=== PATIENT | female | born 1960 | race American Indian/Alaskan Native ===

== ENCOUNTER 2017-11-19 13:23 | Observation (INO) | payer OTHER ==
--- NOTE | 2017-11-19 14:04 | Cat Scan Report ---
FINAL REPORT EXAM: CT CERVICAL SPINE WO CON HISTORY: fall, +LOC TECHNIQUE: Spiral CT scanning of the cervical spine, with axial images and multiplanar reformations. PRIORS: None. FINDINGS: Mild reversal of normal cervical lordosis may be positional versus soft tissue spasm. Mild, multilevel degenerative disc disease and spondylosis. No acute compression deformity or gross malalignment of cervical vertebral bodies. No acute fracture identified. No acute, osseous central spinal canal encroachment. Paraspinal soft tissues grossly unremarkable. IMPRESSION: 1. No acute compression deformity or apparent fracture in the cervical spine. 2. Mild degenerative spondylosis.
--- NOTE | 2017-11-19 14:04 | Cat Scan Report ---
FINAL REPORT EXAM: CT HEAD/BRAIN WO CON HISTORY: fall, +LOC TECHNIQUE: Noncontrast CT axial images of the brain. PRIORS: 02 December 2014. FINDINGS: No parenchymal mass, mass effect, hemorrhage, midline shift or hydrocephalus. No evidence of acute cortical infarct. No abnormal, extra-axial fluid or air collection. Osseous calvarium grossly intact. Marginal mucosal thickening in the ethmoid and left maxillary sinuses. IMPRESSION: 1. No acute intracranial findings.
[2017-11-19 14:39] LABS: Basophils % (Auto) 0.5 % (0.0-1.8); Eosinophils # (Auto) 0.2 K/mm3 (0.0-0.4); Eosinophils % (Auto) 2.5 % (0.0-4.3); Hematocrit 38.5 % (30.3-42.9); Hemoglobin 12.5 gm/dl (10.1-14.3); Lymphocytes # (Auto) 2.1 K/mm3 (1.2-5.4); Lymphocytes % (Auto) 28.3 % (13.4-35.0); Mean Corpuscular HGB Conc 33 % (30-34); Mean Corpuscular Hemoglobin 28 pg (28-32); Mean Corpuscular Volume 86 fl (79-97); Monocytes # (Auto) 0.6 K/mm3 (0.0-0.8); Monocytes % (Auto) 7.6 % (0.0-7.3); Platelet Count 183 K/mm3 (140-440)
[2017-11-19 14:42] LABS: BUN/Creatinine Ratio 15; Blood Urea Nitrogen 16 mg/dL (7-17); Calcium 10.4 mg/dL (8.4-10.2); Hemolysis Index 0; INR 0.9 (0.87-1.13); Partial Thromboplastin Time 24.1 Sec. (24.2-36.6)
[2017-11-19 14:43] LABS: Thrombin Time 17.2 Sec. (15.1-19.6)
[2017-11-19] MEDS ORDERED: NACL 0.9% 1000 ML 1,000 ML IV ONE (14:58)
[2017-11-19] MEDS ORDERED: KCL 10MEQ/100ML 10 MEQ/100 ML BAG IV ONE (15:01)
--- NOTE | 2017-11-19 15:35 | Cat Scan Report ---
FINAL REPORT EXAM: CT LUMBAR SPINE WO CON HISTORY: fall, struck back and chest, low back pain TECHNIQUE: Spiral CT scanning of the lumbar spine with multiplanar reformations. PRIORS: None. FINDINGS: No acute compression deformity or gross malalignment of lumbar vertebral bodies. No acute fracture identified. No acute, osseous central spinal canal encroachment. Paraspinal soft tissues grossly unremarkable. Punctate calcification noted in the right kidney measuring 1-2 mm, without significant hydronephrosis. IMPRESSION: 1. No acute compression deformity or apparent fracture in the lumbar spine. 2. Punctate, nonobstructing right renal calcification. No significant right hydronephrosis.
[2017-11-19] MEDS ORDERED: NORCO 10/325 PO ONE (15:43)
--- NOTE | 2017-11-19 15:45 | Cat Scan Report ---
FINAL REPORT EXAM: CT CHEST WO CON HISTORY: fall, struck chest, chest pain TECHNIQUE: Spiral CT scanning of the chest. No IV contrast administered. Multiplanar reformations. PRIORS: None. FINDINGS: Chest: Examination limited due to lack of IV contrast administration. Lungs show no significant parenchymal contusions, lacerations or hemothorax. No apparent pneumothorax. Mild cardiomegaly. Ascending thoracic aorta mildly aneurysmal measuring 4.4 cm in maximal cross-sectional diameter. Remainder of thoracic aorta tortuous and ectatic, tapering to the hiatus. No apparent mediastinal hematoma or pneumomediastinum. Bony thorax grossly intact. Punctate calcification again noted in the right kidney. Rounded hypodensities noted in the bilateral kidneys, largest measuring approximately 1.4 cm in the left kidney. IMPRESSION: 1. No acute findings. 2. Mild cardiomegaly and aneurysmal ascending thoracic aorta as reported. 3. Punctate, nonobstructing right renal calcification. Bilateral renal hypodensities possibly representing cysts, but nonspecific. Correlation with renal ultrasound may be confirmatory, as clinically indicated.
[2017-11-19] MEDS ORDERED: APRESOLINE IV ONE (16:45)
[2017-11-19] MEDS ORDERED: MORPHINE IV ONE (16:47)
--- NOTE | 2017-11-19 16:55 | Emergency Department Report ---
ED General Adult HPI - General Chief complaint: Neuro Symptoms/Deficit Stated complaint: HEAD/NECK/BACK PAIN &HANS Time Seen by Provider: 11/19/17 14:43 Source: EMS Mode of arrival: Ambulatory Limitations: No Limitations - History of Present Illness Initial comments: 57-year-old woman fell while in a store, believing that she slipped on a wet surface, and took a hard fall, striking her head with loss of consciousness, as well as striking her chest and back. She has significant pain, which is more or less generalized along her entire back, significant neck pain, and pain at the back of her head. Duration of unconsciousness is unknown, patient was not accompanied at that time, but a family member did find her, on the floor, and was able to arouse her. However, she was unable to get up or walk because of pain, and was brought in by embolus for further evaluation, with concern about some weakness on her left side by nurses at intake, but patient reports no history of stroke and no distinct weakness, and has pain on moving any extremity. Which limits movement of all of the extremities.. Past medical history is significant predominantly for hypertension, for which she takes lisinopril, and apparently had another diuretic medication, but cannot recall. She denies any history of diabetes, no heart disease, no strokes. Onset/Timin -: Sudden, hour(s) Location: head, neck, chest, back Severity scale (0 -10): 9 Quality: stabbing, aching, sharp Consistency: constant Improves with: none Worsens with: movement Associated Symptoms: denies other symptoms - Related Data Previous Rx's Medication Instructions Recorded Last Taken Type Aspirin EC [Aspirin Enteric Coated 81 mg PO QDAY #30 tablet.dr 12/09/14 Unknown Rx TAB] Doxycycline [Vibramycin CAP] 100 mg PO BID #12 capsule 12/09/14 Unknown Rx Lactobacillus Acidophil [Lactinex] 1 each PO TID #30 tablet 12/09/14 Unknown Rx Lisinopril [Zestril TAB] 2.5 mg PO DAILY #30 tablet 12/09/14 Unknown Rx Metoprolol [Lopressor TAB] 50 mg PO TID #90 tablet 12/09/14 Unknown Rx Cyclobenzaprine [Flexeril] 10 mg PO TID PRN #14 tablet 06/25/15 Unknown Rx HYDROcodone/APAP 5-325 [[place] 1 - 2 each PO Q6HR PRN #14 tablet 06/25/15 Unknown Rx 5/325] Ibuprofen [Motrin 800 MG tab] 800 mg PO Q8HR PRN #20 tablet 06/25/15 Unknown Rx Allergies Allergy/AdvReac Type Severity Reaction Status Date / Time No Known Allergies Allergy Unverified 12/01/14 11:01 ED Review of Systems ROS: Stated complaint: HEAD/NECK/BACK PAIN &HANS Other details as noted in HPI ED Past Medical Hx - Past Medical History Previous Medical History?: Yes Hx Hypertension: Yes Hx Congestive Heart Failure: No Hx Diabetes: No Hx Deep Vein Thrombosis: Yes (Blood clot in abdomen 2008) Hx Arthritis: Yes Hx Asthma: Yes Hx COPD: No Hx HIV: No - Surgical History Past Surgical History?: No - Social History Smoking Status: Unknown if ever smoked Substance Use Type: Prescribed - Medications Home Medications: Home Medications Medication Instructions Recorded Confirmed Last Taken Type Aspirin EC [Aspirin Enteric Coated 81 mg PO QDAY #30 tablet.dr 12/09/14 Unknown Rx TAB] Doxycycline [Vibramycin CAP] 100 mg PO BID #12 capsule 12/09/14 Unknown Rx Lactobacillus Acidophil [Lactinex] 1 each PO TID #30 tablet 12/09/14 Unknown Rx Lisinopril [Zestril TAB] 2.5 mg PO DAILY #30 tablet 12/09/14 Unknown Rx Metoprolol [Lopressor TAB] 50 mg PO TID #90 tablet 12/09/14 Unknown Rx Cyclobenzaprine [Flexeril] 10 mg PO TID PRN #14 tablet 06/25/15 Unknown Rx HYDROcodone/APAP 5-325 [[place] 1 - 2 each PO Q6HR PRN #14 tablet 06/25/15 Unknown Rx 5/325] Ibuprofen [Motrin 800 MG tab] 800 mg PO Q8HR PRN #20 tablet 06/25/15 Unknown Rx ED Physical Exam - General Limitations: No Limitations General appearance: alert, anxious, other (speaks primarily in a whisper, appears distracted secondary to her generalized pain) - Head Head exam: Present: normal inspection, other (tender palpation of occiput, no laceration, no bony defect) - Eye Eye exam: Present: PERRL, EOMI - ENT ENT exam: Present: normal exam - Neck Neck exam: Present: normal inspection, tenderness (marked tenderness bilaterally , paracervical musculature, as well as midline, no step-off). Absent: full ROM (limited by pain, in any direction) - Respiratory Respiratory exam: Present: normal lung sounds bilaterally, wheezes (faint, rare) , rales (few posterior crackles,), chest wall tenderness (significantly tender left lateral lower chest wall). Absent: rhonchi - Cardiovascular Cardiovascular Exam: Present: regular rate, normal heart sounds - GI/Abdominal GI/Abdominal exam: Present: soft, normal bowel sounds. Absent: tenderness - Rectal Rectal exam: Present: deferred - Extremities Exam Extremities exam: Present: normal inspection. Absent: tenderness - Back Exam Back exam: Present: normal inspection, tenderness (marked tenderness to palpation bilateral paralumbar musculature), muscle spasm, paraspinal tenderness , other (significant interval rhomboid tenderness, levator scapula and trapezius muscle, bilateral, with spasm). Absent: full ROM (limited by pain) - Neurological Exam Neurological exam: Present: alert, oriented X3. Absent: motor sensory deficit ( limited effort bilaterally, but good movement of all extremities, able to lift legs off stretcher) - Psychiatric Psychiatric exam: Present: normal affect, normal mood - Skin Skin exam: Present: warm, dry ED Course Vital Signs 11/19/17 11/19/17 11/19/17 14:02 14:19 14:30 Temperature 37.1 C Pulse Rate 67 76 Respiratory 14 16 14 Rate Blood Pressure 209/101 161/91 O2 Sat by Pulse 96 100 100 Oximetry 11/19/17 11/19/17 11/19/17 14:33 14:59 15:01 Temperature Pulse Rate 72 70 Respiratory 18 13 19 Rate Blood Pressure 161/91 161/91 O2 Sat by Pulse 98 Oximetry 11/19/17 11/19/17 11/19/17 15:15 15:31 15:45 Temperature Pulse Rate 72 71 88 Respiratory 25 H 21 18 Rate Blood Pressure 161/91 161/91 213/106 O2 Sat by Pulse 98 98 Oximetry 11/19/17 15:52 Temperature Pulse Rate Respiratory 20 Rate Blood Pressure O2 Sat by Pulse Oximetry - Reevaluation(s) Reevaluation #1: 11/19/17 16:59 Patient still with significant discomfort on recheck, has had minimal relief with hydrocodone orally, does have some better movement in all extremities, is able to be sat up, but this causes significant discomfort in the soft tissue along her spine, both in lumbar and thoracic area, but with good range of motion , no bony step-off. Patient remained significantly hypertensive, medicated with hydralazine intravenously. ED Medical Decision Making - Lab Data Result diagrams: 11/19/17 14:23 11/19/17 14:23 - Radiology Data Radiology results: report reviewed (CT scan of head, cervical spine, chest, and lumbar spine, shows no acute fractures) - Medical Decision Making Patient is significantly uncomfortable, but without evidence of acute fracture. She is also significantly hypokalemic, which may have contributed to her unsteadiness and weakness, and probably accentuate her discomfort. She is also significantly hypertensive, probably accentuated by pain, and she will likely need hospitalization for correction of hypokalemia, as well as pain control. - Differential Diagnosis skull fracture, intracranial injury, cervical fracture, rib fracture, pneum Critical Care Time: Yes Critical care attestation.: If time is entered above; I have spent that time in minutes in the direct care of this critically ill patient, excluding procedure time. 30 Critical Care Time: 30 minutes of critical care time was assessed in this patient with the acute injury as a result of weakness and fall, with findings of severe hypokalemia, which required stabilizing treatment with intravenous replenishment of potassium and hospitalization. No billable procedures were performed during this encounter. ED Disposition Clinical Impression: Hypokalemia Acute cervical myofascial strain Qualifiers: Encounter type: initial encounter Qualified Code(s): S16.1XXA - Strain of muscle, fascia and tendon at neck level, initial encounter Scalp contusion Qualifiers: Encounter type: initial encounter Qualified Code(s): S00.03XA - Contusion of scalp, initial encounter Contusion of left chest wall Qualifiers: Encounter type: initial encounter Qualified Code(s): S20.212A - Contusion of left front wall of thorax, initial encounter Acute lumbar myofascial strain Qualifiers: Encounter type: initial encounter Qualified Code(s): S39.012A - Strain of muscle, fascia and tendon of lower back, initial encounter Disposition: OP ADMIT IP TO THIS HOSP Is pt being admited?: Yes Does the pt Need Aspirin: No Condition: Stable Referrals: PRIMARY CARE, [Primary Care Provider] - 3-5 Days Time of Disposition: 18:10
[2017-11-19] MEDS ORDERED: DUONEB *Not for PRN Use IH ONE (18:11)
[2017-11-19] MEDS ORDERED: TYLENOL PO PRN ×2 (18:11→21:55)
[2017-11-19] MEDS ORDERED: SODIUM CHLORIDE FLUSH SYRINGE 10 ML IV PRN ×2 (18:11→21:55)
[2017-11-19] MEDS ORDERED: ZOFRAN IV PRN ×2 (18:11→21:55)
--- NOTE | 2017-11-19 21:54 | History and Physical Report ---
History of Present Illness Date of examination: 11/19/17 Date of admission: 11/19/17 18:11 Chief complaint: Chief complaint: Status post fall and loss of consciousness for a few seconds Pain all over History of present illness: History of Present Illness: 57-year-old woman fell while in a store, believing that she slipped on a wet surface, and took a hard fall, striking her head with loss of consciousness, as well as striking her chest and back. She has significant pain, which is more or less generalized along her entire back, significant neck pain, and pain at the back of her head. Duration of unconsciousness is unknown, patient was not accompanied at that time, but a family member did find her, on the floor, and was able to arouse her. However, she was unable to get up or walk because of pain, and was brought in by EMS for further evaluation, with concern about some weakness on her left side by nurses at intake, but patient reports no history of stroke and no distinct weakness, and has pain on moving any extremity. Which limits movement of all of the extremities.. Past medical history is significant predominantly for hypertension, for which she takes lisinopril, and apparently had another diuretic medication, but cannot recall. She denies any history of diabetes, no heart disease, no strokes. Past Medical History Previous Medical History?: Yes Hx Hypertension: Yes Hx Deep Vein Thrombosis: Yes (Blood clot in abdomen 2008) Hx Arthritis: Yes Hx Asthma: Yes Surgical History Past Surgical History?: No Social History Smoking Status: No smoking Substance Use Type: None Family history: Htn Medications Home Medications: None Review of Systems ROS: Stated complaint: HEAD/NECK/BACK PAIN &HANS Other details as noted in HPI 14 point review of systems done Medications and Allergies Allergies Allergy/AdvReac Type Severity Reaction Status Date / Time No Known Allergies Allergy Unverified 12/01/14 11:01 Home Medications Medication Instructions Recorded Confirmed Last Taken Type Aspirin EC [Aspirin Enteric Coated 81 mg PO QDAY #30 tablet. 12/09/14 Unknown Rx TAB] Doxycycline [Vibramycin CAP] 100 mg PO BID #12 capsule 12/09/14 Unknown Rx Lactobacillus Acidophil [Lactinex] 1 each PO TID #30 tablet 12/09/14 Unknown Rx Lisinopril [Zestril TAB] 2.5 mg PO DAILY #30 tablet 12/09/14 Unknown Rx Metoprolol [Lopressor TAB] 50 mg PO TID #90 tablet 12/09/14 Unknown Rx Cyclobenzaprine [Flexeril] 10 mg PO TID PRN #14 tablet 06/25/15 Unknown Rx HYDROcodone/APAP 5-325 [[place] 1 - 2 each PO Q6HR PRN #14 tablet 06/25/15 Unknown Rx 5/325] Ibuprofen [Motrin 800 MG tab] 800 mg PO Q8HR PRN #20 tablet 06/25/15 Unknown Rx Active Meds: Active Medications Acetaminophen (Tylenol) 650 mg PO Q4H PRN PRN Reason: Pain MILD(1-3)/Fever >100.5/MATUTE Sodium Chloride (Nacl 0.9% 1000 Ml) 1,000 mls @ 125 mls/hr IV ONCE ONE Stop: 11/19/17 22:57 Last Admin: 11/19/17 15:38 Dose: 125 mls/hr Ondansetron HCl (Zofran) 4 mg IV Q8H PRN PRN Reason: Nausea And Vomiting Sodium Chloride (Sodium Chloride Flush Syringe 10 Ml) 10 ml IV BID RACHEL Sodium Chloride (Sodium Chloride Flush Syringe 10 Ml) 10 ml IV PRN PRN PRN Reason: LINE FLUSH Exam - Physical Exam Narrative exam: Lying in bed comfortably - Constitutional Vitals: Temp Pulse Resp BP Pulse Ox 98.5 F 74 18 188/89 99 11/19/17 20:20 11/19/17 20:20 11/19/17 20:20 11/19/17 20:20 11/19/17 20:20 General appearance: Present: no acute distress, well-nourished - EENT Eyes: Present: PERRL ENT: hearing intact, clear oral mucosa - Neck Neck: Present: supple, normal ROM - Respiratory Respiratory effort: normal Respiratory: bilateral: CTA - Cardiovascular Heart rate: 80 Rhythm: regular Heart Sounds: Present: S1 & S2. Absent: rub, click - Extremities Extremities: no ischemia, pulses intact, pulses symmetrical, No edema Peripheral Pulses: within normal limits - Abdominal General gastrointestinal: Present: soft, non-tender, non-distended, normal bowel sounds Female genitourinary: Present: normal - Rectal Rectal Exam: deferred - Integumentary Integumentary: Present: clear, warm, dry - Musculoskeletal Musculoskeletal: gait normal, strength equal bilaterally - Psychiatric Psychiatric: appropriate mood/affect, intact judgment & insight - Neurologic Neurologic: CNII-XII intact, moves all extremities - Allied Health Allied health notes reviewed: nursing, case management Results - Labs CBC & Chem 7: 11/19/17 14:23 11/19/17 14:23 Labs: Laboratory Last Values WBC 7.4 K/mm3 (4.5-11.0) 11/19/17 14:23 RBC 4.50 M/mm3 (3.65-5.03) 11/19/17 14:23 Hgb 12.5 gm/dl (10.1-14.3) 11/19/17 14:23 Hct 38.5 % (30.3-42.9) 11/19/17 14:23 MCV 86 fl (79-97) 11/19/17 14:23 MCH 28 pg (28-32) 11/19/17 14:23 MCHC 33 % (30-34) 11/19/17 14:23 RDW 15.0 % (13.2-15.2) 11/19/17 14:23 Plt Count 183 K/mm3 (140-440) 11/19/17 14:23 Lymph % (Auto) 28.3 % (13.4-35.0) 11/19/17 14:23 [place] % (Auto) 7.6 % (0.0-7.3) H 11/19/17 14:23 Eos % (Auto) 2.5 % (0.0-4.3) 11/19/17 14:23 Baso % (Auto) 0.5 % (0.0-1.8) 11/19/17 14:23 Lymph # 2.1 K/mm3 (1.2-5.4) 11/19/17 14:23 [place] # 0.6 K/mm3 (0.0-0.8) 11/19/17 14:23 Eos # 0.2 K/mm3 (0.0-0.4) 11/19/17 14:23 Baso # 0.0 K/mm3 (0.0-0.1) 11/19/17 14:23 Seg Neutrophils % 61.1 % (40.0-70.0) 11/19/17 14:23 Seg Neutrophils # 4.5 K/mm3 (1.8-7.7) 11/19/17 14:23 PT 12.6 Sec. (12.2-14.9) 11/19/17 14:23 INR 0.90 (0.87-1.13) 11/19/17 14:23 APTT 24.1 Sec. (24.2-36.6) L 11/19/17 14:23 Thrombin Time 17.2 Sec. (15.1-19.6) 11/19/17 14:23 Sodium 143 mmol/L (137-145) 11/19/17 14:23 Potassium 2.7 mmol/L (3.6-5.0) L* 11/19/17 14:23 Chloride 94.1 mmol/L (98-107) L 11/19/17 14:23 Carbon Dioxide 37 mmol/L (22-30) H 11/19/17 14:23 Anion Gap 15 mmol/L 11/19/17 14:23 BUN 16 mg/dL (7-17) 11/19/17 14:23 Creatinine 1.1 mg/dL (0.7-1.2) 11/19/17 14:23 Estimated GFR > 60 ml/min 11/19/17 14:23 BUN/Creatinine Ratio 15 % 11/19/17 14:23 Glucose 119 mg/dL (65-100) H 11/19/17 14:23 Calcium 10.4 mg/dL (8.4-10.2) H 11/19/17 14:23 Troponin T < 0.010 ng/mL (0.00-0.029) 11/19/17 14:23 - Imaging and Cardiology EKG: report reviewed (sinus rhythm at a rate of 68 left anterior fascicular block left ventricular hypertrophy) Imaging and Cardiology: Imaging studies CT spine= C-spine Head CT Chest CT Lumbar spine CT- all negative for any acute injury Renal cyst present Assessment and Plan Advance Directives: Yes (full code) VTE prophylaxis?: Chemical Plan of care discussed with patient/family: Yes - Patient Problems (1) Intracranial injury with concussion Current Visit: Yes Status: Acute Qualifiers: Encounter type: initial encounter Loss of consciousness presence/duration: with LOC of 30 min or less Qualified Code(s): S06.0X1A - Concussion with loss of consciousness of 30 minutes or less, initial encounter Plan to address problem: Patient had loss of consciousness for couple of minutes and recovered completely. We will observe for 24 hours. Physical therapy initiated (2) Hypokalemia Current Visit: Yes Status: Acute Plan to address problem: Patient on diuretics at home with no potassium supplements Potassium supplemented (3) Hypertension Current Visit: Yes Status: Chronic Qualifiers: Hypertension type: essential hypertension Qualified Code(s): I10 - Essential (primary) hypertension Plan to address problem: Losartan 100 mg by mouth daily initiated (4) DVT prophylaxis Current Visit: Yes Status: Acute Plan to address problem: Heparin 5000 every 12 subcutaneously
[2017-11-19] MEDS ORDERED: MORPHINE IV PRN (21:55)
[2017-11-19] MEDS ORDERED: PERCOCET 5/325 PO PRN (21:55)
[2017-11-19] MEDS ORDERED: NACL 0.9% 1000 ML 1,000 ML IV SCH (22:00)
[2017-11-19] MEDS ORDERED: SODIUM CHLORIDE FLUSH SYRINGE 10 ML IV SCH (22:00)
[2017-11-19] MEDS ORDERED: K-DUR PO ONE (22:14)
[2017-11-19] MEDS: PEPCID PO SCH (23:51)
[2017-11-19] MEDS: SODIUM CHLORIDE FLUSH SYRINGE 10 ML IV SCH (23:52)
[2017-11-19] MEDS: HEPARIN SUB-Q SCH (23:53)
[2017-11-20] MEDS: KCL 10MEQ/100ML 10 MEQ/100 ML BAG IV SCH ×4 (00:17→04:04)
[2017-11-20 08:34] LABS: Basophils % (Auto) 0.7 % (0.0-1.8); Eosinophils # (Auto) 0.1 K/mm3 (0.0-0.4); Eosinophils % (Auto) 2.1 % (0.0-4.3); Hematocrit 36.8 % (30.3-42.9); Hemoglobin 12.4 gm/dl (10.1-14.3); Lymphocytes # (Auto) 1.7 K/mm3 (1.2-5.4); Lymphocytes % (Auto) 27.8 % (13.4-35.0); Mean Corpuscular HGB Conc 34 % (30-34); Mean Corpuscular Hemoglobin 29 pg (28-32); Mean Corpuscular Volume 85 fl (79-97); Monocytes # (Auto) 0.5 K/mm3 (0.0-0.8); Monocytes % (Auto) 8.8 % (0.0-7.3); Platelet Count 179 K/mm3 (140-440); Red Blood Count 4.34 M/mm3 (3.65-5.03)
--- NOTE | 2017-11-20 08:39 | Progress Note ---
Assessment and Plan Assessment and plan: Patient is 57 yo woman with a history of hypertension, dvt 2008, oa and asthma who pw mechanical fall with loc after. 2014, she had epistaxis, code blue during 2015 hospital stay with respiratory failure s/p intubation, extubation, arf and elevated troponin -Intracranial injury with concussion: consulted Neurology, Physical therapy initiated -Hypokalemia, severe, K 2.7, still low: replace and repeat in am -Hypernatremia: stop nss and repeat in am -Hypertension:Losartan 100 mg by mouth daily initiated - DVT prophylaxis: Heparin 5000 every 12 subcutaneously History Interval history: Patient was seen and examined. Follow-up on current diagnosis. Overnight uneventful. Patient denies any chest pain, shortness breath, nausea/vomiting or severe headaches. Imaging, nursing note, chart, labs and old chart reviewed. Discussed with patient. Hospitalist Physical - Physical exam Narrative exam: GEN: WDWN, NAD, Awake, Alert, Orientated HEENT: NCAT, EOMI, PERRL, OP Clear NECK: supple, no adenopathy, no thyromegaly, no JVD CVS/HEART: RRR, normal S1S2, pulses present bilaterally CHEST/LUNGS: CTA B, Symmetrical chest expansion, good air entry bilaterally GI/Abdomen: soft, NTND, good bowel sounds, no guarding or rebound /Bladder: no suprapubic tenderness, no CVA or paraspinal tenderness EXT/Skin: no c/c/e, no obvious rash MSK: FROM x 4 Neuro: CN 2-12 grossly intact, no new focal deficits Psych: calm - Constitutional Vitals: Temp Pulse Resp BP Pulse Ox 98.6 F 63 20 175/90 98 11/20/17 07:20 11/20/17 07:20 11/20/17 07:20 11/20/17 07:20 11/20/17 07:20 General appearance: Present: no acute distress, well-nourished Results - Labs CBC & Chem 7: 11/20/17 07:39 11/20/17 07:39 Labs: Laboratory Last Values WBC 6.1 K/mm3 (4.5-11.0) 11/20/17 07:39 RBC 4.34 M/mm3 (3.65-5.03) 11/20/17 07:39 Hgb 12.4 gm/dl (10.1-14.3) 11/20/17 07:39 Hct 36.8 % (30.3-42.9) 11/20/17 07:39 MCV 85 fl (79-97) 11/20/17 07:39 MCH 29 pg (28-32) 11/20/17 07:39 MCHC 34 % (30-34) 11/20/17 07:39 RDW 15.0 % (13.2-15.2) 11/20/17 07:39 Plt Count 179 K/mm3 (140-440) 11/20/17 07:39 Lymph % (Auto) 27.8 % (13.4-35.0) 11/20/17 07:39 [place] % (Auto) 8.8 % (0.0-7.3) H 11/20/17 07:39 Eos % (Auto) 2.1 % (0.0-4.3) 11/20/17 07:39 Baso % (Auto) 0.7 % (0.0-1.8) 11/20/17 07:39 Lymph # 1.7 K/mm3 (1.2-5.4) 11/20/17 07:39 [place] # 0.5 K/mm3 (0.0-0.8) 11/20/17 07:39 Eos # 0.1 K/mm3 (0.0-0.4) 11/20/17 07:39 Baso # 0.0 K/mm3 (0.0-0.1) 11/20/17 07:39 Seg Neutrophils % 60.6 % (40.0-70.0) 11/20/17 07:39 Seg Neutrophils # 3.7 K/mm3 (1.8-7.7) 11/20/17 07:39 PT 12.6 Sec. (12.2-14.9) 11/19/17 14:23 INR 0.90 (0.87-1.13) 11/19/17 14:23 APTT 24.1 Sec. (24.2-36.6) L 11/19/17 14:23 Thrombin Time 17.2 Sec. (15.1-19.6) 11/19/17 14:23 Sodium 143 mmol/L (137-145) 11/19/17 14:23 Potassium 2.7 mmol/L (3.6-5.0) L* 11/19/17 14:23 Chloride 94.1 mmol/L (98-107) L 11/19/17 14:23 Carbon Dioxide 37 mmol/L (22-30) H 11/19/17 14:23 Anion Gap 15 mmol/L 11/19/17 14:23 BUN 16 mg/dL (7-17) 11/19/17 14:23 Creatinine 1.1 mg/dL (0.7-1.2) 11/19/17 14:23 Estimated GFR > 60 ml/min 11/19/17 14:23 BUN/Creatinine Ratio 15 % 11/19/17 14:23 Glucose 119 mg/dL (65-100) H 11/19/17 14:23 POC Glucose 105 (70-105) 11/20/17: Calcium 10.4 mg/dL (8.4-10.2) H 11/19/17 14:23 Troponin T < 0.010 ng/mL (0.00-0.029) 11/19/17 14:23
[2017-11-20 08:58] LABS: Alanine Aminotransferase 25 units/L (7-56); BUN/Creatinine Ratio 14; Blood Urea Nitrogen 13 mg/dL (7-17); Calcium 9.5 mg/dL (8.4-10.2); Hemolysis Index 0
[2017-11-20] MEDS: SODIUM CHLORIDE FLUSH SYRINGE 10 ML IV SCH ×2 (09:34→22:16)
[2017-11-20] MEDS: HEPARIN SUB-Q SCH ×2 (09:35→22:16)
[2017-11-20] MEDS: COZAAR PO SCH (09:35)
[2017-11-20] MEDS: PEPCID PO SCH ×2 (09:35→22:16)
[2017-11-20] MEDS ORDERED: APRESOLINE IV PRN (13:52)
[2017-11-20] MEDS ORDERED: APRESOLINE PO PRN (14:25)
[2017-11-20] MEDS: NORVASC PO SCH (15:00)
[2017-11-20] MEDS ORDERED: K-DUR PO ONE (15:00)
[2017-11-20] MEDS ORDERED: PERCOCET 5/325 PO PRN ×2 (17:15→17:17)
--- NOTE | 2017-11-20 21:34 | Consultation ---
History of Present Illness Consult date: 11/20/17 Requesting physician: CAROLINE ESTEVEZ Reason for Consult: concussion Chief complaint: concussion History of present illness: This 57-year-old -Cypriot (Lithuanian) right-handed female for ER: "fell while in a store, believing that she slipped on a wet surface, and took a hard fall, striking her head with loss of consciousness, as well as striking her chest and back. She has significant pain, which is more or less generalized along her entire back, significant neck pain, and pain at the back of her head. Duration of unconsciousness is unknown, patient was not accompanied at that time, but a family member did find her, on the floor, and was able to arouse her. However, she was unable to get up or walk because of pain, and was brought in by embolus for further evaluation, with concern about some weakness on her left side by nurses at intake, but patient reports no history of stroke and no distinct weakness, and has pain on moving any extremity. Which limits movement of all of the extremities." She states she was shopping at a grocery store when she slipped on water and bumped the back of her head on a vertical iron olaf attached to the wall and then fell to the floor which produced loss of consciousness for 5 minutes. She hurt her entire spine and has neck pain radiating through the mid back to the left hip. She has headache occipitally with nausea which she says makes her blood pressure high along with some lightheadedness. If she tries to stand she gets worse headache. She is listed as being on cyclobenzaprine but denied being on any muscle relaxants. She thinks she was on lisinopril 20 mg with hydrochlorothiazide of unknown strength but other blood pressure medications are listed in the chart as being home medications. Past History Past Medical History: hypertension (I am medications for this for the past 2 months.). denies: diabetes, stroke Past Surgical History: (2) Social history: other (takes care of her handicapped son). denies: smoking, alcohol abuse, prescription drug abuse, IV drug use (never illicit drugs.) Family history: hypertension, other (no history of epilepsy). denies: diabetes (father), stroke Medications and Allergies Allergies Allergy/AdvReac Type Severity Reaction Status Date / Time No Known Allergies Allergy Unverified 12/01/14 11:01 Home Medications Medication Instructions Recorded Confirmed Last Taken Type Aspirin EC [Aspirin Enteric Coated 81 mg PO QDAY #30 tablet.dr 12/09/1411/18/17 Rx TAB] Doxycycline [Vibramycin CAP] 100 mg PO BID #12 capsule 12/09/14 11/20/17 Rx Lactobacillus Acidophil [Lactinex] 1 each PO TID #30 tablet 12/09/14 11/20/17 Rx Lisinopril [Zestril TAB] 2.5 mg PO DAILY #30 tablet 12/09/14 11/20/17 11/18/17 Rx Metoprolol [Lopressor TAB] 50 mg PO TID #90 tablet 12/09/14 11/20/17 11/18/17 Rx Cyclobenzaprine [Flexeril] 10 mg PO TID PRN #14 tablet 06/25/15 11/20/17 Rx HYDROcodone/APAP 5-325 [[place] 1 - 2 each PO Q6HR PRN #14 tablet 06/25/1511/17/17 Rx 5/325] Ibuprofen [Motrin 800 MG tab] 800 mg PO Q8HR PRN #20 tablet 06/25/15 11/20/17 Rx Active Meds: Active Medications Acetaminophen (Tylenol) 650 mg PO Q4H PRN PRN Reason: Pain MILD(1-3)/Fever >100.5/MATUTE Amlodipine Besylate (Norvasc) 10 mg PO QDAY [facility] Last Admin: 11/20/17 15:00 Dose: 10 mg Famotidine (Pepcid) 20 mg PO BID [facility] Last Admin: 11/20/17 09:35 Dose: 20 mg Heparin Sodium (Porcine) (Heparin) 5,000 unit SUB-Q Q12HR [facility] Last Admin: 11/20/17 09:35 Dose: 5,000 unit Hydralazine HCl (Apresoline) 10 mg IV Q4HR PRN PRN Reason: Blood Pressure Hydralazine HCl (Apresoline) 25 mg PO Q8HR PRN PRN Reason: Blood Pressure Losartan Potassium (Cozaar) 100 mg PO QDAY [facility] Last Admin: 11/20/17 09:35 Dose: 100 mg Metoprolol Tartrate (Lopressor) 50 mg PO TID [facility] Morphine Sulfate (Morphine) 2 mg IV Q4H PRN PRN Reason: Pain, Moderate (4-6) Last Admin: 11/19/17 23:55 Dose: 2 mg Ondansetron HCl (Zofran) 4 mg IV Q8H PRN PRN Reason: Nausea And Vomiting Oxycodone/Acetaminophen (Percocet 5/325) 2 tab PO Q6H PRN PRN Reason: Pain, Moderate (4-6) Sodium Chloride (Sodium Chloride Flush Syringe 10 Ml) 10 ml IV BID [facility] Last Admin: 11/20/17 09:34 Dose: 10 ml Sodium Chloride (Sodium Chloride Flush Syringe 10 Ml) 10 ml IV PRN PRN PRN Reason: LINE FLUSH Tizanidine HCl (Zanaflex) 2 mg PO Q8H PRN PRN Reason: Pain Review of Systems All systems: negative (no headaches or dizziness usually, a little bit of snoring but no pauses noted, dozes off for 5 minutes once a day but no naps and never sleepy driving. No memory problems.) Physical Examination - Vital Signs Vital Signs: Vital Signs Temp Pulse Resp BP Pulse Ox 98.7 F 67 14 209/101 96 11/19/17 14:02 11/19/17 14:02 11/19/17 14:02 11/19/17 14:02 11/19/17 14:02 - Physical Exam Narrative exam: General Appearance: well developed but borderline for being moderately obese ( per BMI) mid 50s female in [facility], accompanied by her son. HEENT: atraumatic, normocephalic; no bruits, 2+ Jeff without soreness or induration or enlargement, sclerae nonicteric. Oropharynx pink and moist. No TMJ click, but has TMJ and all 4 paranasal sinus soreness to light pressure. Neck: supple, no bruits. Heart: no murmur or extra sounds. Extremities: no clubbing, cyanosis or edema. 2+ dorsalis pedis pulses bilaterally. Neurologic Exam: Mental Status: Awake, alert, oriented X 3, speech is clear but accented (states however that Romansh is her first language), names pen and point of pen, and abstracts well. Names President and Limnology Teacher, serial 7's with one error though gets 5+7 = 12, has some right-left confusion, gets 3 of 3 objects at 3 minutes, spells WORLD backwards with one transposition. Cranial Nerves: jara full, no papilledema, SVPs present, PERRLA, EOMs full without nystagmus or diplopia, facial sensation intact to pinprick and light touch, no facial weakness, Lam is midline, palate is crowded but appears to elevate symmetrically, shoulder shrug is not testable due to soreness bilaterally, tongue protrudes midline. Cerebellar: finger to nose dysmetric right without tremor, heel to alejandro is intact but causes low back pain. Sensory: intact to light touch, pinprick, and vibrations. Double simultaneous stimulation is intact. Motor Exam Upper Extremities: no drift or pronation, Katja are slightly slow bilaterally. Hide Cleaner are 5 X 2, tone is normal. No atrophy or fasciculations are noted visually. Motor Exam Lower Extremities: no leg lag, quadriceps show give way with pain at 3+, anterior tibials show give way with pain at 4 and gastrocnemius show give way with pain at 4. Katja intact. Tone is normal. No atrophy or fasciculations are noted visually. Reflexes: Palmomental and jaw jerk are negative but snout is positive. Triceps are trace to 1 on the right and 0 on the left with reinforcement, biceps and brachioradialis are trace bilaterally. Yaw's is negative bilaterally. Knee jerks are 0 bilaterally becoming trace to 1 on the right and remaining 0 on the left with reinforcement and ankle jerks are 0 bilaterally even with reinforcement and without clonus. Toes are downgoing bilaterally to Babinski testing. Results - Laboratory Findings CBC and BMP: 11/20/17 07:39 11/20/17 07:39 Abnormal Lab Findings: Abnormal Labs 11/19/17 11/19/17 11/19/17 14:23 14:23 14:23 [place] % (Auto) 7.6 H APTT 24.1 L Sodium Potassium 2.7 L* Chloride 94.1 L Carbon Dioxide 37 H Glucose 119 H Calcium 10.4 H 11/20/17 11/20/17 07:39 07:39 [place] % (Auto) 8.8 H APTT Sodium 153 H D Potassium 3.1 L Chloride Carbon Dioxide 34 H Glucose 108 H Calcium Assessment and Plan Impression: 1. Postconcussive syndrome 2. Cervical strain 3. Thoracic strain 4. Lumbosacral strain Plan: 1. Tizanidine 2 mg twice a day and 4 mg at bedtime. 2. Could not give nortriptyline due to conflict with Zofran. Consider consider trying it when Zofran is no longer needed. 3. Could not give steroid since hypertensive. 4. Increased her Percocet based on weight. Could not find a 10 mg size to use here in orders which could allow less acetaminophen. 45 minutes spent with this patient. Thank you for an interesting consultation on this mid 50s lady. Will sign off, should follow up with her PCP or possibly a neurologist as an outpatient.
[2017-11-20] MEDS: LOPRESSOR PO SCH (22:15)
[2017-11-20] MEDS: ZANAFLEX PO PRN (22:21)
[2017-11-21 07:37] LABS: BUN/Creatinine Ratio 14; Blood Urea Nitrogen 13 mg/dL (7-17); Calcium 9.7 mg/dL (8.4-10.2); Hemolysis Index 0
[2017-11-21] MEDS: LOPRESSOR PO SCH ×2 (08:06→14:10)
--- NOTE | 2017-11-21 09:22 | Discharge Summary ---
Providers - Providers Date of Admission: 11/19/17 18:11 Attending physician: AMANDA PUENTES MD 11/19/17 22:28 Physical Therapy Evaluation and Treat [CONS] Routine Comment: Reason For Exam: severe debility and status post fall 11/20/17 08:32 Consult to Physician [CONS] Routine Comment: Consulting Provider: IJEOMA ENRIQUEZ Physician Instructions: Reason For Exam: fall, head trauma during fall with LOC after Primary care physician: [facility]LEBOT[employer]IST [employer] [employer] ASSISTANT Hospitalization Condition: Stable Hospital course: Patient is 57 yo woman with a history of hypertension, dvt 2008, oa and asthma who pw mechanical fall , head trauma with loc after. 2014, she had epistaxis, code blue during 2015 hospital stay with respiratory failure s/p intubation, extubation, arf and elevated troponin. She was treated with IV fluids. Electrolytes were repleted. Her blood pressure medications optimized. She was found to have no acute findings on CT of her head. She received neurology consult who recommended optimal pain management and muscle relaxants giving pain from mechanical injury. Diagnosis -Epistaxis -Head trauma, with concussion -Hypokalemia, -Hypernatremia: -Hypertensive urgency Disposition: DC-01 TO HOME OR SELFCARE Time spent for discharge: 33 minutes Core Measure Documentation - Palliative Care Palliative Care/ Comfort Measures: Not Applicable - Core Measures Any of the following diagnoses?: none Exam - Constitutional Vitals: Temp Pulse Resp BP Pulse Ox 98.1 F 64 20 161/105 97 11/21/17 07:15 11/21/17 07:15 11/21/17 07:15 11/21/17 08:05 11/21/17 07:15 General appearance: Present: no acute distress, well-nourished - EENT Eyes: Present: PERRL ENT: hearing intact, clear oral mucosa - Neck Neck: Present: supple, normal ROM - Respiratory Respiratory effort: normal Respiratory: bilateral: CTA - Cardiovascular Heart Sounds: Present: S1 & S2. Absent: rub, click - Extremities Extremities: pulses symmetrical, No edema Peripheral Pulses: within normal limits - Abdominal General gastrointestinal: Present: soft, non-tender, non-distended, normal bowel sounds Female genitourinary: Present: normal - Integumentary Integumentary: Present: clear, warm, dry - Musculoskeletal Musculoskeletal: gait normal, strength equal bilaterally - Psychiatric Psychiatric: appropriate mood/affect, intact judgment & insight - Neurologic Neurologic: CNII-XII intact, moves all extremities Plan Follow up with: PRIMARY CARE, [Primary Care Provider] - 3-5 Days Prescriptions: amLODIPine [Norvasc] 10 mg PO QDAY #30 tablet hydrALAZINE [Apresoline TAB] 25 mg PO Q8HR PRN #90 tablet PRN Reason: Blood Pressure HYDROcodone/APAP 10-325 [[place] 10/325] 1 each PO Q6HR PRN #20 tablet PRN Reason: Pain Potassium Chloride [K-Dur] 20 meq PO QDAY #30 tablet tiZANidine [Zanaflex] 2 mg PO Q8H PRN #90 tablet PRN Reason: Pain Valsartan/Hydrochlorothiazide [Valsartan-Hctz 160-25 mg Tab] 1 each PO DAILY # 30 tablet
[2017-11-21] MEDS ORDERED: K-DUR PO SCH (10:00)
[2017-11-21] MEDS: COZAAR PO SCH (10:16)
[2017-11-21] MEDS: PEPCID PO SCH (10:17)
[2017-11-21] MEDS: ZANAFLEX PO PRN (10:17)
[2017-11-21] MEDS: NORVASC PO SCH (10:17)
[2017-11-21] MEDS: HEPARIN SUB-Q SCH (10:18)
[2017-11-21] MEDS: SODIUM CHLORIDE FLUSH SYRINGE 10 ML IV SCH (10:32)
[2017-11-21] MEDS ORDERED: PNEUMOVAX 23 IM ONE (12:00)
[2017-11-21 15:33] VITALS: BP 131/83
== END 2017-11-21 17:00 | disposition home or self-care (01) ==
LOC: ED 13:23 → 3A 18:11
PROVIDERS: ADMIT Internal Medicine; ATTEND Internal Medicine
DX: S06.0X1A Concussion with loss of consciousness of 30 minutes or less, initial encounter (principal); E87.6 Hypokalemia; I10 Essential (primary) hypertension; M19.90 Unspecified osteoarthritis, unspecified site; J45.909 Unspecified asthma, uncomplicated; W18.39XA Other fall on same level, initial encounter; Y92.89 Other specified places as the place of occurrence of the external cause; Y99.8 Other external cause status
CPT/HCPCS: 36415; 70450; 71250; 72125; 72131; 80048; 80053; 82962; 83735; 84484; 85025; 85610; 85670; 85730; 90732; 93005; 93010; 94640; 96361; 96365; 96372; 96375; 96376; 97116; 97161; 99285; G0008; G0378; J0360; J1644; J2270; J3480; J7030; 90471